=== PATIENT | male | born 1960 | race Caucasian/White ===

== ENCOUNTER 2017-07-23 18:37 | Emergency (ER) | payer OTHER ==
[~2017-07-23] VITALS: Ht 165.1 cm; Wt 128.7 kg
[2017-07-23 20:42] VITALS: BP 166/119
[2017-07-23] MEDS ORDERED: ketorolac trometh inj. 60 MG/2 ML VIAL IM ONE (22:00)
[2017-07-23] MEDS ORDERED: CYCL-1 PO (22:18)
== END 2017-07-23 22:51 | disposition home or self-care (01) ==
LOC: ER 18:37
DX: M54.6 Pain in thoracic spine (principal); I10 Essential (primary) hypertension; V89.2XXA Person injured in unspecified motor-vehicle accident, traffic, initial encounter; Y93.89 Activity, other specified; Y92.89 Other specified places as the place of occurrence of the external cause; Y99.8 Other external cause status
CPT/HCPCS: 71046; 96372; 99284; J1885

== ENCOUNTER 2018-05-27 14:51 | Emergency (ER) | payer MEDICAID, OTHER ==
[~2018-05-27] VITALS: Ht 165.1 cm; Wt 42.3 kg
[~2018-05-27 14:51] MED LIST: CYCL-1 PO
[2018-05-27 16:46] VITALS: BP 166/94
== END 2018-05-27 16:57 | disposition home or self-care (01) ==
LOC: ER 14:51
DX: K94.23 Gastrostomy malfunction (principal); I10 Essential (primary) hypertension; Z79.899 Other long term (current) drug therapy; Z56.0 Unemployment, unspecified
CPT/HCPCS: 99283

== ENCOUNTER 2018-07-06 15:13 | Outpatient (CLI) | payer MEDICAID | END 2018-07-06 23:59 | disposition home or self-care (01) | LOC: RAD 15:13 | PROVIDERS: ATTEND Internal Medicine Hematology & Oncology | DX: C02.0 Malignant neoplasm of dorsal surface of tongue (principal); K21.9 Gastro-esophageal reflux disease without esophagitis | CPT/HCPCS: 74230 ==